=== PATIENT | female | born 1985 | race Caucasian/White ===

== ENCOUNTER 2016-07-25 12:50 | Emergency (ER) | payer MEDICAID, OTHER ==
[~2016-07-25] VITALS: Ht 165.1 cm; Wt 74.0 kg
[2016-07-25 12:53] VITALS: Ht 165.1 cm; Wt 74.0 kg
[2016-07-25 15:11] LABS: URINE BLOOD (Dip) POC Trace-lysed (NEGATIVE)
--- NOTE | 2016-07-25 15:23 | ERD ---
ER Documentation Chief Complaint Date/Time DATE: 07/25/16 TIME: 15:21 Chief Complaint sent by her pmd for u/s and has pelvic pain HPI This is a 31-year-old female with history of hernia, appendectomy in the past presenting to the emergency department complaining of pelvic pain that comes and goes rating it 7 out of 10 for the past 2 weeks. Patient was seen at her clinic - [facility] today and they sent her to the emergency department to get a pelvic ultrasound. Patient denies any fevers, nausea, vomiting, diarrhea, urinary symptoms. Patient has not tried any medications for this. She denies any vaginal bleeding ROS All systems reviewed and are negative except as per history of present illness. Medications Home Meds Active Scripts Ibuprofen* (Ibuprofen*) 400 Mg Tablet, 400 MG PO Q6H Y for PAIN, #30 TAB Prov:BRODY CABRERA PA-C 07/25/16 Allergies Allergies: Coded Allergies: No Known Allergy (Unverified , 07/25/16) PMhx/Soc History of Surgery: Yes (appendectomy; hernia surgery ; ectopic ; cyst removal left breast) Anesthesia Reaction: No Hx Neurological Disorder: No Hx Respiratory Disorders: No Hx Cardiac Disorders: No Hx Psychiatric Problems: No Hx Miscellaneous Medical Probl: No Hx Alcohol Use: No Hx Substance Use: No Hx Tobacco Use: No Smoking Status: Never smoker Physical Exam Vitals Vital Signs Date Time Temp Pulse Resp B/P Pulse Ox O2 Delivery O2 Flow Rate FiO2 07/25/16 12:53 98.8 63 18 136/80 98 Physical Exam GENERAL: well-developed/well-nourished, in no apparent distress, non-toxic appearing HENT: NC/AT, moist mucous membranes EYES: Conjunctiva normal NECK: Supple, no lymphadenopathy PULM: CTA bilaterally, no rales, rhonchi, or wheezing heard CV: Normal S1S2, RRR, good capillary refill GI: Soft, non-distended, tender to palpation pelvic region bilaterally Normal bowel sounds, no masses or organomegaly felt on exam No gross peritonitis, no bruits Negative Rovsing, negative Bailey, negative McBurney's point, Negative CVAT BACK: No masses EXT: No clubbing, cyanosis, or edema NEURO: Alert and Orientated SKIN: Intact, normal turgor PSYCH: Normal mood and mentation Results 24 hrs Laboratory Tests Test 07/25/16 15:10 07/25/16 15:12 Urine Color LT. YELLOW Urine Clarity CLEAR Urine pH 6.0 Urine Specific [place] <=1.005 Urine Ketones NEGATIVE Urine Nitrite NEGATIVE Urine Bilirubin NEGATIVE Urine Urobilinogen 0.2 E.U./dL Urine Leukocyte Esterase NEGATIVE Urine Microscopic RBC 0-2/HPF Urine Microscopic WBC 0-2/HPF Urine Squamous Epithelial Cells MODERATE Urine Bacteria RARE Urine Hemoglobin 1+ Urine Glucose NEGATIVE% Urine Total Protein NEGATIVE Bedside Urine pH (LAB) 5.5 Bedside Urine Protein (LAB) Negative Bedside Urine Glucose (UA) Negative Bedside Urine Ketones (LAB) Negative Bedside Urine Blood Trace-lysed Bedside Urine Nitrite (LAB) Negative Bedside Urine Leukocyte Esterase (L Negative Current Medications Medications (Trade) Dose Ordered Sig/Mylene Route PRN Reason Start Time Stop Time Status Last Admin Dose Admin Ibuprofen (Motrin) 600 mg ONCE STAT PO 07/25/16 15:24 07/25/16 15:25 DC Procedures/MDM This is a 31-year-old female with history of hernia, appendectomy in the past presenting to the emergency department complaining of pelvic pain that comes and goes rating it 7 out of 10 for the past 2 weeks, likely due to fibroids. No evidence of ovarian torsion or other acute emergent conditions. Patient was seen at her clinic - [facility] today and they sent her to the emergency department to get a pelvic ultrasound. She is well-appearing with stable vital signs. She does not seem to be in any distress. A urinalysis was done in the ED did not show any evidence of urinary tract infection. Urine test is negative. Pelvic ultrasound was done and radiologist stated: 1. Enlarged uterus with multiple fibroids. The largest fibroid measures 3.6 cm in maximal dimension. 2. Otherwise normal pelvic ultrasound. Patient was given pain relief in the ED and I have reassessed her and she is doing better. Diagnostic testing was given to patient, I have discussed with her to follow-up with her clinic again. Discussed return to the ER for any worsening signs or symptoms. Patient understands and agrees with this plan. Departure Diagnosis: Primary Impression: Fibroids Additional Impression: Pelvic pain Condition: Stable BRODY CABRERA PA-C July 25, 2016 15:23
[2016-07-25] MEDS ORDERED: IBUPROFEN 600 MG TAB PO STA (15:24)
[2016-07-25 15:35] LABS: ADD UMIC YES; URINE BILIRUBIN (Dip) NEGATIVE (NEGATIVE); URINE BLOOD (Dip) 1+ (NEGATIVE); URINE COLOR LT. YELLOW (YELLOW); URINE GLUCOSE (Dip) NEGATIVE (NEGATIVE); URINE KETONES (Dip) NEGATIVE (NEGATIVE); URINE LEUKOCYTE ESTERASE (Dip) NEGATIVE (NEGATIVE); URINE NITRITE (Dip) NEGATIVE (NEGATIVE); URINE TOTAL PROTEIN (Dip) NEGATIVE (NEGATIVE); URINE UROBILINOGEN (Dip) 0.2 E.U./dL (0.1-1.0)
--- NOTE | 2016-07-25 15:49 | RADRPT ---
PROCEDURE: US Pelvis. CLINICAL INDICATION: Abnormal vaginal bleeding. TECHNIQUE: The pelvis was evaluated with transabdominal and transvaginal sonography in the axial a nd sagittal planes. COMPARISON: No prior study is available for comparison. FINDINGS: Uterus: 9.1 x 6.6 x 6.6 cm. Endometrium: 7.1 mm. Right ovary: 3.6 x 1.9 x 2.5 cm. Left ovary: 4.0 x 2.6 x 2.2 cm. Uterine masses: There are multiple masses in the uterus consistent with fibroids with the largest po steriorly in the fundus measuring 3.6 x 3.2 x 2.1 cm. Ovarian masses: None. Color Doppler and pulsed Doppler sonography demonstrate normal flow to the ova mitchell. Other pelvic masses: None. Free fluid: None. IMPRESSION: 1. Enlarged uterus with multiple fibroids. The largest fibroid measures 3.6 cm in maximal dimensio n. 2. Otherwise normal pelvic ultrasound. RPTAT: QQ .Dilip Feliciano MD, MD Date Time Electronically viewed and signed by .Dilip Feliciano MD, on 07/25/2016 15:48 .R/
[2016-07-25] MEDS ORDERED: IBUP400T22 PO (15:52)
[2016-07-25 16:03] LABS: BACTERIA,URINE RARE; SQUAMOUS EPITHELIAL CELL,UR MODERATE; URINE RBCS 0-2 /HPF (0)
[2016-07-25 17:37] VITALS: BP 132/95; PULSE 68; RESP 20; TEMP 98.2
== END 2016-07-25 17:38 | disposition home or self-care (01) ==
LOC: FTE 12:50
DX: D25.9 Leiomyoma of uterus, unspecified (principal)
CPT/HCPCS: 76830; 76856; 81001; Z7502; Z7610; 81003